=== PATIENT | female | born 1960 | race Caucasian/White ===

== ENCOUNTER 2017-05-25 19:53 | Emergency (ER) | payer MEDICARE, MEDICAID ==
[~2017-05-25] VITALS: Ht 175.3 cm; Wt 95.3 kg
[~2017-05-25 19:53] MED LIST: DALMANE PO; HYDR-548 PO; LEVO500T2 PO; MUSCLE RELAXER PO; Metoclopramide Hcl PO; NEURONTIN PO; PANT40TA2 PO
[2017-05-25] MEDS ORDERED: HYDROMORPHONE 1 MG/1 ML DISP.SYRIN IM ONE (20:15)
[2017-05-25] MEDS ORDERED: PROMETHAZINE HCL 25 MG/1 ML VIAL IM ONE (20:15)
--- NOTE | 2017-05-25 20:21 | NUR ---
Patient discharged to home in stable conditon. Written and verbal after care instructions given. Patient verbalizes understanding of instructions.
[2017-05-25] MEDS ORDERED: HYDROMORPHONE 2 MG/1 ML DISP.SYRIN ONE (20:30)
[2017-05-25] MEDS ORDERED: PROMETHAZINE HCL 25 MG/1 ML VIAL ONE (20:30)
== END 2017-05-25 20:22 | disposition home or self-care (01) ==
LOC: ER 19:55
DX: J11.1 Influenza due to unidentified influenza virus with other respiratory manifestations (principal); Z85.3 Personal history of malignant neoplasm of breast; Z88.0 Allergy status to penicillin; Z88.2 Allergy status to sulfonamides
CPT/HCPCS: A4663; J1170; J2550

== ENCOUNTER 2020-12-31 19:25 | Emergency (ER) | payer BC, MEDICARE, MEDICAID ==
[~2020-12-31] VITALS: Ht 175.3 cm; Wt 65.8 kg
[2020-12-31 20:56] LABS: HEMATOCRIT 23.5 % (31.2-41.9); MEAN CORPUSCULAR VOLUME 94.3 fL (75.5-95.3); PLATELET COUNT (AUTO) 281 K/uL (179-408)
[2020-12-31 21:00] LABS: CREATININE 1.1 mg/dL (0.6-1.3); POTASSIUM 4.1 mmol/L (3.5-5.1)
--- NOTE | 2020-12-31 21:13 | NUR ---
Patient stated she was hungry, and wanted food to eat. MD [place] notified and approved of patient to have food. Patient provided a meal to eat at bedside.
--- NOTE | 2020-12-31 21:31 | NUR ---
Patient is resting comfortably in bed, finished her meal. Patient's son was called and notified that the patient is ready for discharge. Son states he will miner pick his mother in 15-30 minutes.
[2020-12-31 22:12] VITALS: BP 120/72
--- NOTE | 2020-12-31 22:14 | NUR ---
Patient discharged to home in stable condition. Written and verbal after care instructions given. Patient verbalizes understanding of instructions. Stressed follow up or return to ER for worsening s/s. Patient discharged to the care of her son AJ to drive her home, wheeled to car via wheelchair, V/S stable, and left with all personal belongings.
== END 2020-12-31 22:15 | disposition home or self-care (01) ==
LOC: ER 19:27
DX: D64.9 Anemia, unspecified (principal); C50.919 Malignant neoplasm of unspecified site of unspecified female breast; Z88.0 Allergy status to penicillin; Z88.2 Allergy status to sulfonamides; Z92.21 Personal history of antineoplastic chemotherapy
CPT/HCPCS: 36415; 85025; 86850; 86900; 86901; A4663

== ENCOUNTER → 2020-12-31 | Emergency (ER) | payer BC, MEDICARE, OTHER ==
[~2020-12-31] MED LIST changes: +HYDR-4354 PO; -HYDR-548 PO
== END | disposition left against medical advice (07) ==
LOC: ER 18:03
DX: Z53.21 Procedure and treatment not carried out due to patient leaving prior to being seen by health care provider (principal)